=== PATIENT | female | born 1965 | race Caucasian/White ===

== ENCOUNTER 2023-06-11 22:14 | Inpatient (IN) | payer BC, SELFPAY ==
[2023-06-11] MEDS ORDERED: NOREPINEPHRINE 8 MG/250 ML-D5W 250 ML ONE (22:17)
[2023-06-11] MEDS ORDERED: Propofol 1,000 MG/100 ML VIAL IV ONE (22:30)
[2023-06-11] MEDS ORDERED: Vasopressin 20 UNITS/ML VIAL ONE (22:36)
[2023-06-11 22:38] LABS: #Eosinphils 0.4 thou/uL (0.0-0.7); #Monocytes 0.5 thou/uL (0.11-0.59); #Neutrophils 6.6 thou/uL (1.40-6.50); %Basophils 0.5 % (0.0-1.0); %Eosinophils 4.3 % (0.0-10.0); %Lymphocytes 10.3 % (21.0-51.0); %Monocytes 5.5 % (0.0-10.0); %Neutrophils 78.9 % (42.0-75.0); Hematocrit 38.3 % (36.0-47.0); Hemoglobin 12.3 g/dL (12.0-16.0); Mean Corpuscular HGB CONC 32.1 g/dL (32.0-36.0); Mean Corpuscular Hemoglobin 32.9 pg (27.0-31.0); Mean Corpuscular Volume 102.4 fl (78.0-98.0); Mean Platelet Volume 10.6 fL (7.4-10.4); Platelet Count 259 10x3/uL (130-400); RBC Distribution Width 12.1 % (11.5-14.5); Red Blood Cell (RBC) Count 3.74 mill/uL (4.20-5.40); White Blood Cell (WBC) Count 8.4 10x3/uL (4.8-10.8)
[2023-06-11 22:40] LABS: Actual Bicarbonate (HCO3a) 18.6 mEq/L (22-28); Analyzer IN Cardio ER; Base Excess (BEa) -3.7 mEq/L (-2.0 to +3.0); CO2 Tension 26.2 mmHg (35.0-45.0); Carboxyhemoglobin (COHb) 0.1 gm% (0.0-3.0); Hematocrit-ABG 37 % (36.0-47.0); Hemoglobin (Hb) 12.7 g/dL (12.0-16.0); O2 Tension (PaO2), arterial 353.9 mmHg (80.0-100.0); Potassium - ABG Lab 4.13 mmol/L (3.70-5.30); pH, Arterial 7.468 (7.35-7.45)
[2023-06-11 22:45] LABS: Puncture Site LBA
[2023-06-11 22:48] LABS: PTT 25.9 sec (22.9-36.1); Prothrombin Time 13.7 sec (12.0-14.7)
[2023-06-11 22:53] LABS: Bacteria/HPF None Seen HPF (None Seen); Bilirubin Negative (Negative); Blood, Urine Negative (Negative); CAUTI Indications for Culture Alt mental st,lethar; Clarity Clear (Clear); Glucose, Urine (Dipstick) Normal (Negative); Ketone, Urine Trace mg/dL (Negative); Leukocyte Negative Leu/uL (Negative); Nitrite Negative (Negative); Protein, Urine (Dipstick) 30 mg/dL (Neg-Trace); RBC/HPF 0-3 HPF (0-3); Specific Gravity, Urine 1.043 (1.002-1.036); Squamous Epithelial 0-3 HPF (0-3); Urobilinogen 3 mg/dL (Less than 2); WBC/HPF 0-3 HPF (0-3); pH, Urine 5.5 (5.0-9.0)
[2023-06-11 22:54] LABS: Urine Culture Reflex No No
[2023-06-11 22:55] LABS: Acetaminophen 17 mcg/mL (10.0-30.0); Alcohol Less than 10.0 mg/dL (Less than 10); Lipase 28 U/L (8-78); Magnesium 1.6 mg/dL (1.6-2.6); Salicylate Less than 8.0 mg/dL (15.0-30.0)
[2023-06-11 22:58] LABS: Amphetamine Not Detected (NotDetected); Barbiturates Screen Not Detected (NotDetected); Benzodiazepine Screen Not Detected (NotDetected); Cocaine Metabolite Screen Not Detected (NotDetected); Methadone Not Detected (NotDetected); Methamphetamine Not Detected (NotDetected); Opiate Screen Not Detected (NotDetected); Oxycodone Screen Not Detected (NotDetected); Phencyclidine (PCP) Not Detected (NotDetected); THC/Cannabinoid Screen Not Detected (NotDetected); Tricyclic Screen Not Detected (NotDetected)
[2023-06-11 23:06] LABS: Troponin I Less than 0.010 ng/mL (< 0.028)
[2023-06-11 23:08] LABS: Albumin 3.1 g/dL (3.5-5.0)
[2023-06-11 23:09] LABS: Chloride 111 mmol/L (98-107); Potassium 4.1 mmol/L (3.5-5.1); Sodium 138 mmol/L (136-145)
[2023-06-11 23:10] LABS: Calcium 7.7 mg/dL (7.8-10.44)
[2023-06-11 23:11] LABS: Globulin 2.2 g/dL (2.4-3.5); Glucose 120 mg/dL (70-105); Protein, Total 5.3 g/dL (6.0-8.3)
[2023-06-11 23:12] LABS: Carbon Dioxide 18 mmol/L (22-29)
[2023-06-11 23:13] LABS: Alkaline Phosphatase 79 U/L (40-110); Bilirubin, Total 0.3 mg/dL (0.2-1.2)
[2023-06-11 23:14] LABS: Calc. Creatinine Clearance 0 mL/min (70-130); Estimated GFR 85
[2023-06-11 23:15] LABS: BUN (Urea Nitrogen) 14 mg/dL (9.8-20.1)
[2023-06-11 23:16] LABS: ALT (SGPT) 34 U/L (8-55); AST (SGOT) 46 U/L (5-34)
[2023-06-11 23:34] LABS: Anion Gap 13 mmol/L (10-20)
[2023-06-11] MEDS ORDERED: Fentanyl CADD 100 ML IV SCH (23:45)
[2023-06-11] MEDS ORDERED: Propofol 1,000 MG/100 ML VIAL IV PRN (23:45)
[2023-06-11] MEDS ORDERED: Fentanyl BOLUS 250 ML IVPB PRN (23:45)
[2023-06-11] MEDS ORDERED: Morphine 2 MG/ML VIAL SLOW IVP PRN (23:45)
[2023-06-11] MEDS ORDERED: Propofol BOLUS 1,000 MG/100 ML VIAL IV PRN (23:45)
[2023-06-11] MEDS ORDERED: DISCONTINUE PREVIOUS NARCOTIC PAIN MEDICATIONS AND BENZODIAZEPINES FS SCH (23:45)
[2023-06-12] MEDS: Lorazepam 2 MG/ML VIAL SLOW IVP PRN ×2 (01:23→09:05)
[2023-06-12] MEDS: Sodium Chloride 0.9% 1,000 ML IV SCH ×4 (01:29→12:27)
[2023-06-12] MEDS ORDERED: NOREPINEPHRINE 8 MG/250 ML-D5W 250 ML IVPB PRN (01:30)
[2023-06-12] MEDS ORDERED: Acetaminophen 650 MG Suppository PR PRN (01:30)
[2023-06-12] MEDS ORDERED: Electrolyte Replacement Protocol 1 EACH IVPB PRN (01:30)
[2023-06-12] MEDS ORDERED: Ondansetron PF 4 MG/2 ML Vial IVP PRN (01:30)
[2023-06-12] MEDS ORDERED: FLU VACC QS2023-24(6MOS UP)/PF 60 MCG/0.5 ML SYRINGE IM ONE (01:30)
[2023-06-12] MEDS ORDERED: Ventilator Sedation Protocol 1 EACH FS SCH (01:30)
[2023-06-12] MEDS ORDERED: Dextrose 5%-Lactated Ringers 1,000 ML IV SCH (01:45)
[2023-06-12] MEDS ORDERED: Magnesium 2 GM/50 ML(in water) 2 GM in Premix 1 BAG IVPB SCH (02:00)
[2023-06-12 06:37] LABS: #Eosinphils 0.2 thou/uL (0.0-0.7); #Monocytes 0.3 thou/uL (0.11-0.59); #Neutrophils 4.9 thou/uL (1.40-6.50); %Basophils 0.3 % (0.0-1.0); %Eosinophils 2.8 % (0.0-10.0); %Lymphocytes 9.9 % (21.0-51.0); %Monocytes 5.3 % (0.0-10.0); %Neutrophils 81.4 % (42.0-75.0); Hematocrit 40.1 % (36.0-47.0); Hemoglobin 12.8 g/dL (12.0-16.0); Mean Corpuscular HGB CONC 31.9 g/dL (32.0-36.0); Mean Corpuscular Volume 103.4 fl (78.0-98.0); Mean Platelet Volume 11.2 fL (7.4-10.4); Platelet Count 244 10x3/uL (130-400); RBC Distribution Width 12.3 % (11.5-14.5); Red Blood Cell (RBC) Count 3.88 mill/uL (4.20-5.40)
[2023-06-12 06:48] LABS: Anion Gap 12 mmol/L (10-20); BUN (Urea Nitrogen) 10 mg/dL (9.8-20.1); Calc. Creatinine Clearance 51 mL/min (70-130); Calcium 7.7 mg/dL (7.8-10.44); Carbon Dioxide 20 mmol/L (22-29); Chloride 112 mmol/L (98-107); Estimated GFR 100; Glucose 111 mg/dL (70-105); Magnesium 2.1 mg/dL (1.6-2.6); Potassium 3.8 mmol/L (3.5-5.1); Sodium 140 mmol/L (136-145)
[2023-06-12] MEDS ORDERED: Dexmedetomidine In 0.9 % NaCl 100 ML IVPB SCH (08:00)
[2023-06-12] MEDS: Famotidine/PF 20 mg/2ml Vial SLOW IVP SCH ×2 (09:21→20:20)
[2023-06-12] MEDS: methylPREDNISolone Sod Succ/PF 125 MG/2 ML VIAL IVP SCH ×3 (09:21→20:20)
[2023-06-12] MEDS ORDERED: Electrolyte Replacement Protocol FS PRN (13:45)
[2023-06-12] MEDS ORDERED: Lorazepam 2 MG/ML VIAL SLOW IVP PRN (14:45)
[2023-06-12] MEDS ORDERED: Fentanyl CADD 100 ML IV SCH (14:45)
[2023-06-12] MEDS ORDERED: Fentanyl BOLUS 250 ML IVPB PRN (14:45)
[2023-06-12] MEDS ORDERED: Propofol 1,000 MG/100 ML VIAL IV PRN (14:45)
[2023-06-12] MEDS ORDERED: DISCONTINUE PREVIOUS NARCOTIC PAIN MEDICATIONS AND BENZODIAZEPINES FS SCH (14:45)
[2023-06-12] MEDS ORDERED: Propofol BOLUS 1,000 MG/100 ML VIAL IV PRN (14:45)
[2023-06-12] MEDS: Morphine 2 MG/ML VIAL SLOW IVP PRN ×2 (14:59→17:02)
[2023-06-12] MEDS: Lactated Ringer's 1,000 ML IV SCH (21:46)
[2023-06-13] MEDS: methylPREDNISolone Sod Succ/PF 125 MG/2 ML VIAL IVP SCH (02:23)
[2023-06-13 04:55] LABS: #Monocytes 0.3 thou/uL (0.11-0.59); #Neutrophils 6.9 thou/uL (1.40-6.50); %Basophils 0.4 % (0.0-1.0); %Lymphocytes 9.2 % (21.0-51.0); %Monocytes 3.5 % (0.0-10.0); %Neutrophils 86.4 % (42.0-75.0); Hematocrit 36.2 % (36.0-47.0); Hemoglobin 11.7 g/dL (12.0-16.0); Mean Corpuscular HGB CONC 32.3 g/dL (32.0-36.0); Mean Corpuscular Hemoglobin 31.8 pg (27.0-31.0); Mean Platelet Volume 11.3 fL (7.4-10.4); Platelet Count 264 10x3/uL (130-400); RBC Distribution Width 12.2 % (11.5-14.5); Red Blood Cell (RBC) Count 3.68 mill/uL (4.20-5.40)
[2023-06-13 05:17] LABS: Mean Corpuscular Volume 98.4 fl (78.0-98.0)
[2023-06-13 05:23] LABS: ALT (SGPT) 73 U/L (8-55); AST (SGOT) 22 U/L (5-34); Albumin 2.8 g/dL (3.5-5.0); Alkaline Phosphatase 62 U/L (40-110); Anion Gap 11 mmol/L (10-20); BUN (Urea Nitrogen) 9 mg/dL (9.8-20.1); Bilirubin, Total 0.2 mg/dL (0.2-1.2); Calc. Creatinine Clearance 53 mL/min (70-130); Calcium 8.4 mg/dL (7.8-10.44); Carbon Dioxide 23 mmol/L (22-29); Chloride 107 mmol/L (98-107); Estimated GFR 101; Globulin 2.3 g/dL (2.4-3.5); Glucose 165 mg/dL (70-105); Magnesium 1.8 mg/dL (1.6-2.6); Phosphorus 2.5 mg/dL (2.3-4.7); Potassium 3.8 mmol/L (3.5-5.1); Protein, Total 5.1 g/dL (6.0-8.3); Sodium 137 mmol/L (136-145)
[2023-06-13 05:52] VITALS: BMI 29.2
[2023-06-13] MEDS ORDERED: Magnesium 2 GM/50 ML(in water) 2 GM in Premix 1 BAG IVPB SCH (08:00)
[2023-06-13] MEDS: Famotidine/PF 20 mg/2ml Vial SLOW IVP SCH (09:13)
[2023-06-13] MEDS ORDERED: DC Sedation Protocol FS ONE (11:35)
[2023-06-13] MEDS ORDERED: Atenolol 50 MG TAB PO SCH (11:45)
[2023-06-13] MEDS: Ibuprofen 600 MG TAB PO PRN (13:08)
[2023-06-13] MEDS: Lactated Ringer's 1,000 ML IV SCH (16:20)
[2023-06-13] MEDS: Acetaminophen 325 MG TAB PO PRN (17:10)
[2023-06-13] MEDS: Famotidine 20 MG TAB PO SCH (20:53)
[2023-06-13] MEDS: Methocarbamol 500 MG TAB PO SCH (20:53)
[2023-06-14] MEDS: Acetaminophen 325 MG TAB PO PRN ×2 (05:28→12:38)
[2023-06-14] MEDS: Famotidine 20 MG TAB PO SCH (05:28)
[2023-06-14 06:09] LABS: #Eosinphils 0.1 thou/uL (0.0-0.7); #Monocytes 0.9 thou/uL (0.11-0.59); %Basophils 0.4 % (0.0-1.0); %Eosinophils 1.3 % (0.0-10.0); %Lymphocytes 12.1 % (21.0-51.0); %Monocytes 9.6 % (0.0-10.0); %Neutrophils 76.2 % (42.0-75.0); Hematocrit 41.2 % (36.0-47.0); Mean Corpuscular HGB CONC 31.6 g/dL (32.0-36.0); Mean Corpuscular Hemoglobin 31.6 pg (27.0-31.0); Mean Corpuscular Volume 100.2 fl (78.0-98.0); Mean Platelet Volume 10.9 fL (7.4-10.4); Platelet Count 305 10x3/uL (130-400); RBC Distribution Width 12.4 % (11.5-14.5); Red Blood Cell (RBC) Count 4.11 mill/uL (4.20-5.40); White Blood Cell (WBC) Count 9.3 10x3/uL (4.8-10.8)
[2023-06-14 06:41] LABS: ALT (SGPT) 58 U/L (8-55); AST (SGOT) 16 U/L (5-34); Albumin 3.4 g/dL (3.5-5.0); Alkaline Phosphatase 72 U/L (40-110); Anion Gap 13 mmol/L (10-20); BUN (Urea Nitrogen) 9 mg/dL (9.8-20.1); Bilirubin, Total 0.3 mg/dL (0.2-1.2); Calc. Creatinine Clearance 103 mL/min (70-130); Calcium 8.9 mg/dL (7.8-10.44); Carbon Dioxide 26 mmol/L (22-29); Chloride 109 mmol/L (98-107); Estimated GFR 90; Globulin 2.6 g/dL (2.4-3.5); Glucose 111 mg/dL (70-105); Potassium 3.6 mmol/L (3.5-5.1); Sodium 144 mmol/L (136-145)
[2023-06-14 08:00] VITALS: TEMP 98
[2023-06-14] MEDS: Methocarbamol 500 MG TAB PO SCH (08:22)
[2023-06-14] MEDS: Ibuprofen 600 MG TAB PO PRN ×2 (08:24→14:50)
[2023-06-14] MEDS ORDERED: DULoxetine 60 MG CAP PO SCH (09:00)
[2023-06-14 11:59] VITALS: BP 149/90
[2023-06-14] MEDS ORDERED: Sodium Chloride 0.65% Nasal 44 ML BOT EA NARE PRN (14:05)
[2023-06-14] MEDS ORDERED: Moisturizing Cream (Eucerin) 113 GM JAR TOP PRN (14:05)
[2023-06-14] MEDS ORDERED: Loperamide HCl 2 MG CAP PO PRN ×2 (14:05)
[2023-06-14] MEDS ORDERED: Artificial Tear Sol 15 ML BOT EA EYE PRN (14:05)
[2023-06-14] MEDS ORDERED: Benzocaine/Menthol 1 LOZ LOZ PO PRN (14:05)
[2023-06-14] MEDS ORDERED: Pregabalin 25 MG CAP PO SCH (21:00)
== END 2023-06-14 16:17 | disposition home or self-care (01) | DRG 917 ==
LOC: ERS 22:14 → ERHOLD 23:47 → CCU 06-12 00:53 → T4-A 06-13 16:16
PROVIDERS: ADMIT Student in an Organized Health Care Education/Training Program; ATTEND Family Medicine
PROC: 5A1945Z Respiratory Ventilation, 24-96 Consecutive Hours (ICD-10-PCS; principal; 2023-06-11)
PROC: 0BH17EZ Insertion of Endotracheal Airway into Trachea, Via Natural or Artificial Opening (ICD-10-PCS; 2023-06-11)
PROC: 4A033R1 Measurement of Arterial Saturation, Peripheral, Percutaneous Approach (ICD-10-PCS; 2023-06-11)
DX: T42.8X1A Poisoning by antiparkinsonism drugs and other central muscle-tone depressants, accidental (unintentional), initial encounter (principal); G92.9 Unspecified toxic encephalopathy; J96.01 Acute respiratory failure with hypoxia; R57.8 Other shock; E87.20 Acidosis, unspecified; Z79.899 Other long term (current) drug therapy; T42.6X1A Poisoning by other antiepileptic and sedative-hypnotic drugs, accidental (unintentional), initial encounter
CPT/HCPCS: 36415; 36416; 36600; 70450; 71045; 80048; 80053; 80306; 80307; 81001; 82805; 83690; 83735; 83880; 84100; 84443; 84484; 85025; 85610; 85730; 93005; 94002; 94003; J2060; J2272; J2405; J2704; J2930; J3475; J3490; J7050; J7120; S0028